=== PATIENT | male | born 1965 | race Caucasian/White ===

== ENCOUNTER 2021-02-17 17:17 | Emergency (ER) | payer OTHER ==
[~2021-02-17] VITALS: Ht 175.3 cm; Wt 70.3 kg
[~2021-02-17 17:17] MED LIST: ENDOCET 5-3251 EACH PO; HYDROXYZINE HCL50 MG PO; OMEPRAZOLE20 MG PO; ONDANSETRON ODT4 MG PO; OXYCODONE H5 MG/5 ML PO; RANITIDINE HCL150 MG PO; TRANSDERM-SCOP1 EA TD
--- OUTSIDE RECORDS SUMMARY | 2021-02-17 17:20 | XMS ---
PreManage Notification: BILL LOPEZ Security [facility] Specialist Events No recent Security Events currently on file CRITERIA MET - PDMP CARE PROVIDERS ENOC COLVIN Kiran Current PHONE: [phone] Agnes has no Care Guidelines for this patient. E.Jovita VISIT COUNT (12 MO.) 1 [facility] 1 [facility] TOTAL 2 NOTE: Visits indicate total known visits. ED/UCC VISIT TRACKING (12 MO.) 02/17/2021 17:18 [facility] [place] TYPE: Emergency COMPLAINT: - PAIN 12/27/2020 20:02 [facility] TYPE: Emergency DIAGNOSES: 66608. postoperative complications 82246. Other postprocedural complications and disorders of digestive system INPATIENT VISIT TRACKING (12 MO.) 12/27/2020 20:02 [facility] TYPE: Surgery DIAGNOSES: 82533. Dyskinesia of esophagus 96499. Pneumothorax, unspecified 16851. Other postprocedural complications and disorders of digestive system 99647. Disease of esophagus, unspecified 12/17/2020 05:34 [facility] TYPE: Surgery DIAGNOSES: 85384. Disease of esophagus, unspecified 71882. ESOPHAGEAL DYSMOTILITY 47279. Dyskinesia of esophagus 75211. Disease of esophagus, unspecified [email or web address]
[2021-02-17] MEDS ORDERED: TRAZODONE HCL50 MG PO (17:37)
[2021-02-17] MEDS ORDERED: OXYCODONE HCL5 MG PO (17:37)
[2021-02-17] MEDS ORDERED: ACETAMINOPHEN500 MG PO (17:38)
[2021-02-17] MEDS ORDERED: BACLOFEN10 MG PO (17:38)
[2021-02-17] MEDS ORDERED: PROSOURCE PROT946 ML PO (17:39)
== END 2021-02-17 21:24 | disposition home or self-care (01) ==
LOC: ED 17:17
DX: R07.81 Pleurodynia (principal); K21.9 Gastro-esophageal reflux disease without esophagitis; Z79.899 Other long term (current) drug therapy
CPT/HCPCS: 71260; 80053; 83605; 85025; 99285-25; Q9967

== ENCOUNTER 2021-03-25 22:19 | Emergency (ER) | payer OTHER ==
[~2021-03-25] VITALS: Ht 175.3 cm; Wt 71.5 kg
[~2021-03-25 22:19] MED LIST changes: +ACETAMINOPHEN500 MG PO; +BACLOFEN10 MG PO; +OXYCODONE HCL5 MG PO; +PROSOURCE PROT946 ML PO; +TRAZODONE HCL50 MG PO
--- OUTSIDE RECORDS SUMMARY | 2021-03-25 22:22 | XMS ---
PreManage Notification: BILL LOPEZ Security [employer] Events No recent Security Events currently on file CRITERIA MET - [facility] - Has Care Guidelines [facility] ENOC COLVIN Current PHONE: [phone] RICKY MORA Nurse Practitioner: Family 02/18/2021-Current PHONE: [phone] Agnes has no Care Guidelines for this patient. Care History Medical/Surgical 02/18/2021 [facility] \T\nbsp; \T\nbsp; PATIENT IS A -RECEIVES SERVICES THROUGH [facility] IN [place]. \T\nbs; Location: [address], [place] [address]- E.D. VISIT COUNT (12 MO.) 1 [facility] [address] [facility] TOTAL 3 NOTE: Visits indicate total known visits. ED/UCC VISIT TRACKING (12 MO.) 03/25/2021 22:20 [facility] TYPE: Emergency COMPLAINT: - FEEDING TUBE PROBLEM 02/17/2021 17:18 [facility] TYPE: Emergency COMPLAINT: - PAIN DIAGNOSES: - Pleurodynia - Other chest pain - Other fci (current) drug therapy - Pleurisy - Gastro-esophageal reflux disease without esophagitis 12/27/2020 20:02 [facility] TYPE: Emergency DIAGNOSES: 67678. postoperative complications 28677. Other postprocedural complications and disorders of digestive system INPATIENT VISIT TRACKING (12 MO.) 12/27/2020 20:02 [facility] TYPE: Surgery DIAGNOSES: 13878. Dyskinesia of esophagus 79506. Pneumothorax, unspecified 22571. Other postprocedural complications and disorders of digestive system 53338. Disease of esophagus, unspecified 12/17/2020 05:34 [facility] TYPE: Surgery DIAGNOSES: 17939. Disease of esophagus, unspecified 56101. ESOPHAGEAL DYSMOTILITY 92545. Dyskinesia of esophagus 21525. Disease of esophagus, unspecified [email or web address]
[2021-03-26] MEDS ORDERED: ATIVAN1 MG PO (00:13)
== END 2021-03-26 00:38 | disposition home or self-care (01) ==
LOC: ED 22:19
DX: T85.528A Displacement of other gastrointestinal prosthetic devices, implants and grafts, initial encounter (principal); K21.9 Gastro-esophageal reflux disease without esophagitis; Z79.891 Long term (current) use of opiate analgesic; Z79.899 Other long term (current) drug therapy
CPT/HCPCS: 74018; 96372; 99283-25; J2060

== ENCOUNTER 2023-10-15 07:55 | Day surgery (SDC) | payer OTHER ==
[2023-10-12 16:13] VITALS: BP 129/80
[~2023-10-15] VITALS: Ht 175.3 cm; Wt 68.2 kg
[~2023-10-15 07:55] MED LIST changes: +ATIVAN1 MG PO; +CITRACAL-VIT D1 EAC2 PO; +CYMBALTA60 MG PO; +ENSURE HIGH PR237 ML PO; +FLOMAX0.4 MG PO; +IBLOOD GLUCOSE TEST STRIP 1 EA TEST VI PRN; +LACTATED RINGER'S 1,000 ML IV SCH; +LIDOCAINE HCL 1% 5 ML SDV INJ ONE; +OSTERA TABLET1 EACH PO; +ROSUVASTATIN CA10 MG PO; +propofoL 200 MG/20 ML VIAL ONE
[2023-10-15 08:02] VITALS: BP 140/94
[2023-10-15] MEDS ORDERED: FORTEO2.4 M1 SQ (08:12)
[2023-10-15] MEDS ORDERED: dexmedeTOMIDine HCl 200 MCG/2 ML VIAL ONE (09:13)
[2023-10-15] MEDS ORDERED: ATROPINE SULFATE 1 MG/ML VIAL ONE (09:16)
[2023-10-15] MEDS ORDERED: ondansetron HCL 4 MG/2 ML VIAL ONE (09:26)
[2023-10-15] MEDS ORDERED: LACTATED RINGER'S 1,000 ML IV ONE (09:47)
[2023-10-15] MEDS ORDERED: ePHEDrine sulfate 50 MG/ML AMP ONE (10:45)
[2023-10-15 11:14] VITALS: BP 101/67
--- NOTE | 2023-10-15 12:47 | OR ---
[facility] [address], [place] [address] Signed DATE OF OPERATION: 10/15/2023 SURGEON: Bettina Diaz MD PREOPERATIVE DIAGNOSES: Screening. POSTOPERATIVE DIAGNOSES: 1. Long redundant colon. 2. Tortuous colon. 3. Minimal left-sided diverticulosis. 4. Minimal internal hemorrhoids. 5. Minimal small internal anal skin tags. PROCEDURE: Colonoscopy without biopsy. ESTIMATED BLOOD LOSS: None. INDICATIONS: Bill is a 57-year-old gentleman, asked to see me for what looks like his initial colonoscopy. He said he has no family history of colon cancer or polyps. He was telling me that he had at least a couple of fundoplications in the past. Eventually, he had to have a total esophagectomy with gastric pull-through with Dr. New Zambrano at [facility]. Of course, he has a pyloromyotomy. He is now describing type 1 dumping syndrome. He is apparently working with someone locally in that regard. Of course, we have a couple of unbundler at our hospital who can help him as well. He also told me about his neck and back injuries and his surgeries. He has been on daily narcotics along with benzodiazepines. In the office I had given him our brochure on colonoscopy. We had looked at it together in detail. He understands the nature of the test. There is risk including, but not limited to gas bloating, crampy abdominal pain, bleeding, perforation requiring surgery, and missed diagnosis. We also reviewed the written instructions for bowel prep line by line. We also went through his medications. We are going to let him start his prep a little early in the day because of his dumping syndrome to help him out in that regard. In addition, because of his daily need for opiates and benzodiazepines, we asked for monitored anesthesia care with propofol infusion. That proved to be a landin decision as he took a large amount of propofol. He also needed preoperative blood work and an EKG. He had expressed understanding and wished to proceed. He understands an adult person has to Electronically Signed By: BETTINA DIAZ MD 10/15/23 1247 PATIENT NAME: BILL LOPEZ OPERATIVE REPORT DATE OF : 61 REPORT #: [id number] PHYSICIAN: BETTINA DIAZ MD PCP: KAMALJIT WATTERS PAC REPORT IS CONFIDENTIAL AND NOT TO BE RELEASED WITHOUT AUTHORIZATION [facility] [address], [place] [address] Signed take him home afterwards. DESCRIPTION OF PROCEDURE: Bill was taken into our endoscopy suite and placed in the left lateral decubitus position. We elevated the head of his bed about 30 degrees because of his esophagectomy. He was given monitored anesthesia care propofol infusion per nurse rn lvn. A digital rectal exam was performed. He had good sphincter tone. There were no external hemorrhoids. There were no masses. The adult colonoscope was introduced and advanced under direct visualization of the camera. We found that indeed he had a very long redundant tortuous colon. He has a very difficult area in his sigmoid colon and it took quite a bit of time to get through. We needed extra sedation and abdominal compression to get the scope around and finally over to the cecum. His prep was good. There were some areas that we had to irrigate and suction out for better visualization. In the future, he might use a little more bowel prep. Eventually, we could identify the cecum and the ileocecal valve. The scope was then slowly withdrawn. The entire procedure took about an hour, which is more than double most of our colonoscopies. We withdrew the scope slowly and we see that he does have left-sided diverticula. They were small to moderate in size, few in number and scattered about. There were no polyps. He is a bit tall and he does have a long rectum. We retroflexed the scope and he has just tiny internal hemorrhoid tissue and a few small tiny internal anal skin tags. After this, the gas was suctioned out and the colonoscope was removed. Bill tolerated the procedure quite well. RECOMMENDATIONS: Bill can return in 10 years for repeat screening colonoscopy. Bettina Diaz MD ALB/MODL /[id number] cc: JOAQUINA Rojas [facility] Electronically Signed By: BETTINA DIAZ MD 10/15/23 1247 PATIENT NAME: BILL LOPEZ OPERATIVE REPORT DATE OF : 61 REPORT #: [id number] PHYSICIAN: BETTINA DIAZ MD PCP: KAMALJIT WATTERS PAC REPORT IS CONFIDENTIAL AND NOT TO BE RELEASED WITHOUT AUTHORIZATION [address] [address] Signed Bettina Diaz MD Copies: BETTINA DIAZ MD ~ Electronically Signed By: BETTINA DIAZ MD 10/15/23 1247 PATIENT NAME: BILL LOPEZ OPERATIVE REPORT DATE OF : 61 REPORT #: [id number] PHYSICIAN: BETTINA DIAZ MD PCP: KAMALJIT WATTERS PAC REPORT IS CONFIDENTIAL AND NOT TO BE RELEASED WITHOUT AUTHORIZATION
== END 2023-10-15 11:22 | disposition home or self-care (01) ==
LOC: DS 07:55
PROVIDERS: ATTEND Colon & Rectal Surgery
PROC: 0DJD8ZZ Inspection of Lower Intestinal Tract, Via Natural or Artificial Opening Endoscopic (ICD-10-PCS; principal; 2023-10-15 09:00)
DX: Z12.11 Encounter for screening for malignant neoplasm of colon (principal); K57.30 Diverticulosis of large intestine without perforation or abscess without bleeding; K64.8 Other hemorrhoids; K64.4 Residual hemorrhoidal skin tags; K91.1 Postgastric surgery syndromes; K21.9 Gastro-esophageal reflux disease without esophagitis; N40.0 Benign prostatic hyperplasia without lower urinary tract symptoms; F41.9 Anxiety disorder, unspecified; M54.9 Dorsalgia, unspecified; J44.9 Chronic obstructive pulmonary disease, unspecified; Z87.891 Personal history of nicotine dependence; Z79.899 Other long term (current) drug therapy; Z88.8 Allergy status to other drugs, medicaments and biological substances
CPT/HCPCS: 00812; J0461; J2405; J2704; J7121

== ENCOUNTER 2024-03-26 15:32 | Emergency (ER) | payer OTHER ==
[~2024-03-26] VITALS: Ht 175.3 cm; Wt 71.7 kg
[~2024-03-26 15:32] MED LIST changes: +FORTEO2.4 M1 SQ; -IBLOOD GLUCOSE TEST STRIP 1 EA TEST VI PRN; -LACTATED RINGER'S 1,000 ML IV SCH; -LIDOCAINE HCL 1% 5 ML SDV INJ ONE; -propofoL 200 MG/20 ML VIAL ONE
[2024-03-26] MEDS ORDERED: CYCLOBENZAPRINE10 MG PO (17:32)
[2024-03-26] MEDS ORDERED: diazePAM 5 MG TAB PO ONE (18:45)
[2024-03-26] MEDS ORDERED: HYDROCODONE/ACETA 5/325 TAB PO ONE (18:45)
[2024-03-26] MEDS ORDERED: NAPROXEN 500 MG TAB PO ONE (18:45)
[2024-03-26] MEDS ORDERED: HYDROCODON-ACE1 EA10 PO (20:17)
[2024-03-26] MEDS ORDERED: HYDROCODONE BIT/ACETAMINOPHEN 5/325 MG 1 TAB HOME.PACK PO ONE (20:30)
[2024-03-26 20:39] VITALS: BP 148/97
== END 2024-03-26 20:40 | disposition home or self-care (01) ==
LOC: ED 15:32
DX: S16.1XXA Strain of muscle, fascia and tendon at neck level, initial encounter (principal); S39.012A Strain of muscle, fascia and tendon of lower back, initial encounter; K21.9 Gastro-esophageal reflux disease without esophagitis; Z98.890 Other specified postprocedural states; Z88.8 Allergy status to other drugs, medicaments and biological substances; Z79.899 Other long term (current) drug therapy; W19.XXXA Unspecified fall, initial encounter
CPT/HCPCS: 72125; 72131; 99283-25; A9270